=== PATIENT | female | born 1975 | race Caucasian/White ===

== ENCOUNTER 2016-10-03 14:49 | Emergency (ER) | payer MEDICAID ==
--- NOTE | 2016-10-03 17:35 | XRay Report ---
FINAL REPORT EXAM: XR KNEE 3V RT HISTORY: injury,pain and swelling COMPARISONS: None. FINDINGS: Three views right knee Prepatellar soft tissue swelling and irregularity. Possible suprapatellar joint effusion. No bone lesion, periosteal reaction, or fracture. No deformity or gross malalignment. IMPRESSION: Prepatellar soft tissue swelling with possible joint effusion. No displaced fracture or gross malalignment.
[2016-10-03] MEDS ORDERED: BOOSTRIX IM ONE (18:15)
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
[2016-10-03] MEDS ORDERED: DILAUDID IM ONE (20:40)
[2016-10-03 21:16] VITALS: BP 123/77
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
== END 2016-10-03 21:45 | disposition home or self-care (01) ==
LOC: ED 14:49
DX: S86.911A Strain of unspecified muscle(s) and tendon(s) at lower leg level, right leg, initial encounter (principal); K76.89 Other specified diseases of liver; G89.29 Other chronic pain; D64.9 Anemia, unspecified; F17.200 Nicotine dependence, unspecified, uncomplicated; V19.88XA Pedal cyclist (driver) (passenger) injured in other specified transport accidents, initial encounter; Y93.89 Activity, other specified; Y99.8 Other external cause status; Y92.480 Sidewalk as the place of occurrence of the external cause
CPT/HCPCS: 29505; 70450; 72125; 73562; 73590; 73700; 81025; 90471; 90715; 96372; 99285; J1170